=== PATIENT | female | born 1985 | race Caucasian/White ===

== ENCOUNTER 2017-09-15 16:24 | Emergency (ER) | payer OTHER ==
[~2017-09-15] VITALS: Ht 160 cm; Wt 44.9 kg
[~2017-09-15 16:24] MED LIST: ANAPROX DS550 MG PO; AUGMENTIN 875 M1 TAB PO; BACTRIM DS 8001 TA1 PO; CORTISPORIN 1%-10 M1 OT; LEVAQUIN750 MG PO; LIDEX0.05% T; NKHM; PROVERA10 MG PO; PYRIDIUM200 M1 PO; PYRIDIUM200 MG PO; ZANTAC150 MG PO
[2017-09-15 16:27] VITALS: BP 131/80
[2017-09-15] MEDS ORDERED: CEPHALEXIN500 M1 PO (17:46)
== END 2017-09-15 17:34 | disposition home or self-care (01) ==
LOC: ED 16:24
DX: S62.524B Nondisplaced fracture of distal phalanx of right thumb, initial encounter for open fracture (principal); W23.0XXA Caught, crushed, jammed, or pinched between moving objects, initial encounter; Y93.89 Activity, other specified; Y92.810 Car as the place of occurrence of the external cause; Y99.8 Other external cause status

== ENCOUNTER 2020-06-17 19:32 | Emergency (ER) | payer OTHER ==
[~2020-06-17] VITALS: Ht 160 cm; Wt 45.4 kg
[~2020-06-17 19:32] MED LIST changes: +CEPHALEXIN500 M1 PO
[2020-06-17 19:42] VITALS: BP 107/60
== END 2020-06-17 22:00 | disposition home or self-care (01) ==
LOC: ED 19:32
DX: S93.402A Sprain of unspecified ligament of left ankle, initial encounter (principal); S93.401A Sprain of unspecified ligament of right ankle, initial encounter; Z79.899 Other long term (current) drug therapy; Z98.890 Other specified postprocedural states; W17.89XA Other fall from one level to another, initial encounter; Y93.89 Activity, other specified; Y92.89 Other specified places as the place of occurrence of the external cause; Y99.8 Other external cause status

== ENCOUNTER 2022-09-21 12:27 | Emergency (ER) | payer OTHER ==
[~2022-09-21] VITALS: Wt 46.7 kg
[2022-09-21 12:31] VITALS: BP 131/84
[2022-09-21 13:46] LABS: BASO % 0.3 % (0.0-1.0); EOS # 0.1 10*3/uL (0.0-0.4); HEMATOCRIT 44.5 % (37.0-47.0); LYMPH # 2.8 10*3/uL (1.3-4.4); MEAN CELL VOLUME 91.6 fl (81.0-99.0); MEAN CORPUSCULAR HGB 30.2 pg (27.0-31.0); MEAN PLATELET VOLUME 9.6 fl (9.6-12.3); MONO # 0.5 10*3/uL (0.1-1.0); MONO % 5.3 % (3.0-9.0); NEUT # 6.3 10*3/uL (2.3-7.9); NEUT % 63.9 % (47.0-73.0); PLATELET COUNT AUTOMATED 327 10*3/uL (130-400); RED BLOOD COUNT 4.86 10*6/uL (4.10-5.10); RED CELL DISTRI WIDTH 13.2 % (0-14.5); WHITE BLOOD COUNT 9.9 10*3/uL (4.8-10.8)
[2022-09-21 13:55] LABS: ACT PARTIAL THROMBO TIME 26.6 SECONDS (20.0-32.1)
[2022-09-21 14:06] LABS: ALKALINE PHOSPHATASE 67 U/L (46-116); BUN 10 mg/dl (9-23); CHLORIDE 103 mmol/L (98-107); LIPASE 39 U/L (12-53); POTASSIUM 4.1 mmol/L (3.4-5.1); SGPT/ALT 13 U/L (10-49); TOTAL PROTEIN 8.7 gm/dL (6.0-8.0)
[2022-09-21 14:11] LABS: BETA-HCG, QUANT < 3.0 mIU/mL (3-10)
== END 2022-09-21 15:03 | disposition home or self-care (01) ==
LOC: ED 12:27
PROVIDERS: Emergency Medicine
DX: R10.11 Right upper quadrant pain (principal); R14.0 Abdominal distension (gaseous); R10.84 Generalized abdominal pain; Z79.899 Other long term (current) drug therapy; Z79.2 Long term (current) use of antibiotics